=== PATIENT | female | born 1945 | race African-American/Black ===

== ENCOUNTER 2019-07-14 22:57 | Emergency (ER) | payer MEDICARE, BC ==
[~2019-07-14] VITALS: Ht 165.1 cm; Wt 84.0 kg
[2019-07-14] MEDS ORDERED: ONDANSETRON HCL 4MG/2ML INJ IV STA (23:54)
[2019-07-14] MEDS ORDERED: SODIUM CHLORIDE 0.9% 1,000 ML IV ONE (23:54)
[2019-07-14] MEDS ORDERED: MORPHINE SULFATE 4 MG/ML CPJ (NOT FOR IM USE) IV STA (23:54)
[2019-07-15 00:14] LABS: BASOPHILS % 0.5 % (0.0-2.0); HEMATOCRIT. 40.4 % (36.0-48.0); HEMOGLOBIN. 13.1 g/dL (12.0-16.0); LYMPHOCYTES % 26.1 % (20.0-50.0); MEAN CORPUSCULAR HEMOGLOBIN 26.4 pg (28.0-32.0); MEAN PLATELET VOLUME 8.7 fl (7.4-10.4); NEUTROPHILS % 66.4 % (40.0-76.0); PLATELET 154 x1000/uL (130-400); RED BLOOD CELL COUNT 4.99 mill/uL (4.2-5.4); RED CELL DISTRIBUTION WIDTH 13.9 % (11.6-14.6)
[2019-07-15 00:21] LABS: CHLORIDE 107 mEq/L (98-107)
[2019-07-15 00:22] LABS: INR 1.1; PROTHROMBIN TIME 10.9 sec (9.6-11.0)
[2019-07-15] MEDS ORDERED: ONDANSETRON HCL 4MG/2ML INJ IV ONE (03:00)
[2019-07-15] MEDS ORDERED: MORPHINE SULFATE 4 MG/ML CPJ (NOT FOR IM USE) IV ONE (03:00)
[2019-07-15] MEDS ORDERED: ESMOLOL 2500MG PREMIX 250 ML IV ONE (03:59)
[2019-07-15] MEDS ORDERED: IOHEXOL-350 100 ML BOTTLE ONE (04:06)
[2019-07-15] MEDS ORDERED: ESMOLOL 2500MG PREMIX 250 ML IV NR (04:15)
[2019-07-15] MEDS ORDERED: ONDANSETRON HCL 4MG/2ML INJ IV STA (06:38)
[2019-07-15] MEDS ORDERED: MORPHINE SULFATE 4 MG/ML CPJ (NOT FOR IM USE) IV STA (06:38)
[2019-07-15 07:00] VITALS: BP 105/59
== END 2019-07-15 07:15 | disposition short-term general hospital (02) ==
LOC: ER 22:57
DX: I71.2 Thoracic aortic aneurysm, without rupture (principal); R58 Hemorrhage, not elsewhere classified; I10 Essential (primary) hypertension; Z90.710 Acquired absence of both cervix and uterus; I49.9 Cardiac arrhythmia, unspecified
CPT/HCPCS: 36415; 71045; 71275; 74174; 80053; 82962; 83605; 83690; 84484; 85025; 85610; 86850; 86900; 86901; 93005; 96374; 96375; 96376; 99291; J2270; J2405; J3490; J7030; Q9967